=== PATIENT | male | born 1965 | race Caucasian/White ===

== ENCOUNTER → 2017-12-04 | Outpatient (CLI) | payer OTHER ==
[~2017-12-04] MED LIST: ALBUAER19 INH
--- NOTE | 2017-12-04 11:43 | DIAGNOSTIC IMAGING REPORT ---
(BARIUM SWALLOW) ESOPHAGUS CLINICAL HISTORY: REGURGITATIONdysphagia COMPARISON STUDY: None FLUOROSCOPY TIME: 1.3 minutes. FINDINGS: Patient initiates swallowing function well. No evidence for aspiration or neuromuscular dysfunction. Esophagus is normal in course and caliber. Gastroesophageal junction is normal. No significant reflux. IMPRESSION: Normal study. The above report was generated using voice recognition software. It may contain grammatical, syntax or spelling errors. Electronically signed by: Davin Gutiérrez M.D. 12/04/2017 11:03 AM Dictated Date/Time: 12/04/2017 11:03 AM
== END | disposition home or self-care (01) ==
LOC: C.RAD 10:02
PROVIDERS: ATTEND Internal Medicine
DX: R13.10 Dysphagia, unspecified (principal)